=== PATIENT | female | born 1990 | race Caucasian/White ===

== ENCOUNTER 2019-06-04 12:31 | Emergency (ER) | payer SELFPAY ==
[2019-06-04] MEDS ORDERED: IBUPROFEN 600 MG TABLET ONE (13:06)
[2019-06-04 13:17] LABS: RAPID GROUP A STREP NEGATIVE (NEGATIVE)
== END 2019-06-04 14:00 | disposition home or self-care (01) ==
LOC: EDH 12:31
DX: B34.9 Viral infection, unspecified (principal)
CPT/HCPCS: 87804; 87880